=== PATIENT | female | born 1950 | race Caucasian/White ===

== ENCOUNTER 2025-02-08 07:41 | Day surgery (SDC) | payer MEDICARE ==
[2025-02-07 15:09] LABS: MEAN PLATELET VOLUME 8.3 FL (7.4-10.4); RED CELL DISTRIBUTION WIDTH 14.1 % (11.5-14.5)
[2025-02-07 15:20] LABS: CREATININE 0.74 MG/DL (0.40-0.90); TOTAL CARBON DIOXIDE 26.1 MMOL/L (24-32); eGFR 77 ML/MIN
[2025-02-07 15:25] LABS: APTT 27 SECONDS (22-32); INR 1.1 INR
[~2025-02-08] VITALS: Ht 172.7 cm; Wt 129.6 kg
[2025-02-08] VITALS (13 sets, daily range): BP systolic 120–149; BP diastolic 55–94; PULSE 64–99; RESP 14–16; TEMP 98.2; O2SAT 76–100
[~2025-02-08 07:41] MED LIST: ASPI81TA52 PO; CARV6.252 PO; CHOL100046 PO; CLOP75TA34 PO; ESTROGEN; FURO-150 PO; POTASSIUM CHLOR PO; ROSU10TA2 PO; [UNRECOGNIZED DRUG - OTHER] PO
[2025-02-08] MEDS ORDERED: heparin 1,000unit/ml 10ml vial 0 ML ONE (08:15)
[2025-02-08] MEDS ORDERED: fentaNYL/PF 50MCG/1 ML 2ML syringe ONE (08:15)
[2025-02-08] MEDS ORDERED: verapamil 2.5 mg/ml inj IV ONE (08:15)
[2025-02-08] MEDS ORDERED: iohexol 350 MG/ML 50ML vial IV ONE (08:15)
[2025-02-08] MEDS ORDERED: LIDOcaine 1% (10mg/ml) 2ml vial ONE (08:15)
[2025-02-08] MEDS ORDERED: midazolam 1 mg/ML 2ml injection ONE (08:15)
[2025-02-08] MEDS ORDERED: nitroGLYCERIN 500mcg/5mL D5W 5 ML IV ONE ×2 (08:18→10:40)
--- NOTE | 2025-02-08 08:21 | ELECTROCARDIOGRAPH REPORT ---
[facility] Test Date: 2025-02-08 Test Time: 08:19:32 Pat Name: ALEXANDRA MARTIN Department: [facility] Patient ID: [facility]-[id number] Room: Gender: F [employer] Advisor: CARLYN : 1950 Requested By: JOSE CEE Order Number: [id number] Reading MD: Dr. ROD Cee Measurements Intervals [place] Rate: 90 P: 0 UT: 0 QRS: 49 QRSD: 121 T: 51 QT: 406 QTc: 497 Interpretive Statements Atrial fibrillation IVCD, consider atypical RBBB Electronically Signed On 02-08-2025 19:52:[address] ROD Cee Please click the below link to view image of tracing.
[2025-02-08] MEDS ORDERED: FURO40TA4 PO (08:31)
[2025-02-08] MEDS ORDERED: CARV6.253 PO (08:31)
[2025-02-08] MEDS ORDERED: APIX5TAB3 PO (08:33)
[2025-02-08] MEDS ORDERED: heparin 25,000 UNIT/250ml bag 250 ML IV ONE (10:15)
[2025-02-08] MEDS ORDERED: heparin 1,000unit/ml 10ml vial 10 ML ONE (10:15)
[2025-02-08] MEDS ORDERED: clopidogrel 300mg tablet ONE (10:55)
[2025-02-08 11:08] LABS: ISTAT HGB ART 11.9 g/dl (12.0-16.0); ISTAT Hct ART 35 %PCV (35-45); ISTAT O2 SATURATION ARTERIAL 97 % (95-98); ISTAT SOURCE ART
[2025-02-08 11:45] LABS: ISTAT HGB MIX 11.6 g/dl (12.0-16.0); ISTAT Hct MIX 34 %PCV (35-45); ISTAT O2 SATURATION MIX VENOUS 75 % (60-80); ISTAT SOURCE VEN
[2025-02-08] MEDS ORDERED: potassium Cl 20 mEq SR tablet PO ONE (11:55)
[2025-02-08] MEDS ORDERED: normal saline 1000ml 1,000 ML IV SCH (11:55)
[2025-02-08] MEDS: potassium Cl 20 mEq SR tablet PO STA (11:56)
[2025-02-08] MEDS ORDERED: ROSU20TA98 PO (12:11)
[2025-02-08] MEDS ORDERED: CLOP-32 PO (12:11)
[2025-02-08] MEDS ORDERED: ASPI-1397 PO (12:11)
--- NOTE | 2025-02-08 12:11 | ELECTROCARDIOGRAPH REPORT ---
[facility] Test Date: 2025-02-08 Test Time: 12:09:38 Pat Name: ALEXANDRA MARTIN Department: [facility] Patient ID: [facility]-[id number] Room: Gender: F Clerk Supervisor: PEGGY : 1950 Requested By: JOSE CEE Order Number: [id number] Reading MD: Dr. ROD Cee Measurements Intervals [place] Rate: 69 P: 0 [place]: 0 QRS: 51 QRSD: 119 T: 57 QT: 436 QTc: 467 Interpretive Statements Atrial fibrillation Incomplete right bundle branch block Anterior infarct, old Electronically Signed On 02-08-2025 19:51:[address] ROD Cee Please click the below link to view image of tracing.
--- NOTE | 2025-02-09 05:13 | CARDIOLOGY REPORT ---
DATE OF SERVICE: 02/08/2025 DICTATING PHYSICIAN: ROD Alcocer MD CARDIAC CATHETERIZATION GENDER: Female. AGE: 74 years. HEIGHT: 172.7 cm. WEIGHT: 129.6 kg. BODY SURFACE AREA: 2.37 m2. INDICATIONS: The patient is a 74-year-old postmenopausal female with hypertension, hyperlipidemia, obesity, CAD, and prior history of stenting and cardiomyopathy. The patient's history of CAD goes back to 09/14/2020 when she has a proximal mid LAD 90% narrowing, which after the diagonal was successfully angioplastied and stented with 3/12 Resolute stent. The patient has been having exertional fatigue and shortness of breath and her myocardial perfusion scan showed anteroseptal reversible defect. After discussing risks, benefits, and alternative options, the patient is undergoing angiography. Risks, benefits, and alternative options were discussed. Informed consent obtained. The patient also has pulmonary hypertension with a PA systolic pressure of 57 mmHg on echo from 11/01/2024. Sleep apnea suspected and sleep study has been recommended. PROCEDURE TECHNIQUE: The patient had left heart catheterization from right radial approach, 6-[place] right radial sheath. Post-procedure access site hemostasis secured with right radial band. The patient had right heart catheterization from right antecubital approach, 6-[place] sheath. Post-procedure access site hemostasis secured with manual compression. The patient tolerated the procedure well. COMPLICATIONS: None. PROCEDURES DONE: * Ultrasound-guided right radial artery visualization and access. * Right heart catheterization. * Left heart catheterization. * LVG. * Coronary cineangiography. * Intravascular ultrasound of the in-stent stenosis of the LAD. * PTCA stenting of the LAD. * Conscious sedation time of 2 hours. FINDINGS: HEMODYNAMICS: Aortic systolic 137, diastolic 76, mean 98 mmHg. LVEDP of 15 mmHg. No significant gradient across the aortic valve. Right atrial mean 6 mmHg, RV 50/8 mmHg, PA 44/19 mmHg. Pulmonary capillary wedge pressure 19 mmHg. Aortic oxygen saturation 97%, pulmonary artery oxygen 75%. Cardiac output by thermodilution 5.4 L/min and cardiac index 2.28 L/min/m2. LEFT VENTRICULOGRAM: Overall, left ventricular systolic function is about 55-60%. CORONARY CINEANGIOGRAPHY: Left main coronary artery is a large caliber vessel arising from left aortic sinus . It was engaged with JL4 catheter right radial approach. No significant disease seen in left main coronary artery.. LAD is a medium caliber vessel arising at the bifurcation of the left main coronary artery shows 70% narrowing inside the stent. Remainder of the LAD, there is about moderate narrowing immediately after the stent as well. Diagonal one is a 2 mm caliber vessel with mild luminal irregularities. The diagonal 2 , which is proximal to the stent is a 2.5 mm caliber which divided into 3 diversions with minimal lumbar irregularities. Circumflex artery is a medium caliber vessel arising at the bifurcation of the left main coronary, predominantly continues as the obtuse marginal branch, which is 2.75 with mild luminal irregularities. The right coronary artery is a large caliber dominant vessel arising at the right aortic sinus with a vertical takeoff dividing the PDA and a posterolateral branch with minimal luminal irregularities. Intravascular ultrasound of the LAD. A 6-[place]ic XB LAD 4 guide without side hole gave good support. The procedure was carried out after adequate heparinization. Lesion crossed PT2 moderate wire. Intravascular ultrasound done with [place] catheter showed instant as well as distal to the stent narrowing. ANGIOPLASTY AND STENTING OF THE MID LAD: Lesion was angioplastied with 2.75 x 12 NC balloon at 12, far away at 14 atmospheric pressure. Lesion was stented with a 2.5/22 mm Resolute [place] stent extending from the healthy region in the mid LAD all the way up to the origin of the diagonal. Stent was deployed at 12 followed by 14 atmospheric pressure. Proximal three-fourth of the stent was postdilated with 3 mm of 15 [address] all the way up to 14 atmospheric pressure achieving 0% with DELMI 3 flow. The patient tolerated the procedure with no complications. The patient's lesion was angioplastied with a 2.5/12 mm NC balloon at 12 x 14 atmospheric. Subsequently, lesion was stented with 2.5/22 mm Resolute [place] stent starting from just distal to the diagonal until the healthy portion of the mid LAD. Deployed at 12 followed by 14 atmospheric pressure. Proximal three-fourth of the stent was postdilated with a 3/15 Resolute [place] stent at 14 atmospheric pressure. Postprocedure 0% DELIM 0 flow. The patient tolerated the procedure well with no complication. IMPRESSION: A 74-year-old female with an LV ejection fraction of 50-55%. LVEDP of 15 mmHg with no gradient across the aortic valve. Pulmonary capillary wedge pressure of 19 mmHg. PA pressure of 48/19 mmHg. Left main normal. Mid LAD in-stent 70% narrowing and moderate narrowing distal to the stent. IVUS angioplastied and stented at Resolute [place] stent postdilated to 3 mm. Circ marginal with minimal disease. Dominant RCA with minimal disease. RECOMMENDATIONS: Continued aggressive coronary risk factor modification, namely, low-fat, low-cholesterol diet, maintaining ideal body weight, keep LDL less than 70 mg%, regular exercise program. Reevaluate for any sleep apnea. ROD Alcocer MD TID: [id number] RECEIPT: [id number] ADRIENNE/JEWEL/MISAEL cc: MOY Tong, Tamica Horan MD MTDD
== END 2025-02-08 18:20 | disposition home or self-care (01) ==
LOC: SSTAY O 07:41
PROVIDERS: ATTEND Internal Medicine Cardiovascular Disease
DX: T82.855A Stenosis of coronary artery stent, initial encounter (principal); I25.10 Atherosclerotic heart disease of native coronary artery without angina pectoris; R94.39 Abnormal result of other cardiovascular function study; I45.10 Unspecified right bundle-branch block; I50.22 Chronic systolic (congestive) heart failure; R06.00 Dyspnea, unspecified; I42.0 Dilated cardiomyopathy; I48.91 Unspecified atrial fibrillation; I25.2 Old myocardial infarction; Y83.8 Other surgical procedures as the cause of abnormal reaction of the patient, or of later complication, without mention of misadventure at the time of the procedure; Y92.89 Other specified places as the place of occurrence of the external cause
CPT/HCPCS: 36415; 80048; 82803; 85014; 85025; 85347; 85610; 85730; 92978; 93005; 93460; 99152; 99153; A6258; A6402; C1725; C1751; C1753; C1769; C1874; C1894; C9600; J1644; J2003; J2250; J3010; J3490; J7030; Q0163; Q9967; Z7610; 76937; 92979; 93458